=== PATIENT | female | born 1980 | race Caucasian/White ===

== ENCOUNTER 2016-10-11 12:32 | Emergency (ER) | payer SELFPAY ==
[2016-10-11 12:40] VITALS: BP 167/105; PULSE 94; TEMP 97.5
[2016-10-11 12:41] VITALS: BMI 47.0
--- NOTE | 2016-10-11 12:44 | EDPRACDOC ---
- General Information Stated Complaint: DENTAL PAIN Time Seen by Provider: 10/11/16 12:38 Information Source: Patient Home Medications: Home Medications Vilazodone Hydrochloride [Viibryd] 40 mg PO QHS 07/03/15 Lurasidone HCl [Latuda] 60 mg PO QHS 09/17/15 Hydroxyzine Pamoate [Vistaril] 100 mg PO HS 12/03/15 Buspirone HCl [Buspar] 40 mg PO QHS 03/29/16 Ibuprofen Tablet [Motrin] 800 mg PO QID #30 tab 05/20/16 Fluconazole [Diflucan] 150 mg PO ONCE #1 tab 06/22/16 Clindamycin [Cleocin] 300 mg PO TID #60 capsule 10/11/16 Oxycodone Immediate Release [Oxycodone Immediate Release (OxyIR)] 5 mg PO Q4H PRN #14 tab 10/11/16 Allergies/Adverse Reactions: Allergies Allergy/AdvReac Type Severity Reaction Status Date / Time ketorolac tromethamine Allergy Severe Nausea only Verified 06/22/16 14:31 [From Toradol] tramadol Allergy Severe Nausea only Verified 06/22/16 14:31 menthol [From Icy Hot] Allergy Intermediate See Verified 06/22/16 14:31 Comments methyl salicylate Allergy Intermediate See Verified 06/22/16 14:31 [From Icy Hot] Comments Sulfa (Sulfonamide Allergy Intermediate See Verified 06/22/16 14:31 Antibiotics) Comments Penicillins Allergy Mild RASH Verified 06/22/16 14:31 azithromycin Allergy Unknown Verified 06/22/16 14:31 dicyclomine HCl [From Bentyl] Allergy Nausea/Vomi Verified 06/22/16 14:31 ting codeine [Codeine] AdvReac Severe HX Verified 06/22/16 14:31 NARCOTIC DRUG USE erythromycin base AdvReac Intermediate ABD PAIN Verified 06/22/16 14:31 [Erythromycin Base] latex [Latex] AdvReac Intermediate RASH Verified 05/20/16 13:19 TAPE PLASTIC Allergy Hives* Uncoded 05/20/16 13:19 - History of Present Illness Onset: 1 DAYS HPI: RIGHT LOWER TOOTH BROKE YESTERDAY STARTED SWELLING AND CAUSING PAIN. NO FEVERS OR CHILLS AT THIS TIME. Pain Severity: Reports: Moderate Relevant History of: Reports: None Modifying Factors: improves with: None Associated Signs and Symptoms: Reports: None ED Past Medical History - History Reviewed Yes Nurses notes reviewed and agree except as marked Travel Outside of [place] in the Last 3 Months?: No - Patient Medical History Cardiac History: Reports: Hypertension, Congestive Heart Failure, Heart Attack ( 2? Unsure where she went for it) Respiratory History: Reports: Asthma GI/ History: Reports: Kidney Stones, Gastroesophageal Reflux Musculoskeletal History: Reports: Arthritis Psychological History: Reports: Anxiety, Bipolar Disorder, Substance Use Disorder (Opioid, Cocaine, Alcohol). Denies: Depression Systemic History: Denies: Anemia Additional Past Medical History: CHRONIC PAIN Surgical History: Reports: Cholecystectomy, Tonsillectomy/Adnoidectomy - Family Medical History Reports: Hypertension, Diabetes, Cancer, Stroke, Cardiac Disorders - Social Medical History Smoking Status: Heavy tobacco smoker (5 or more cigarettes/day or daily pipe/ cigar) Social History: Reports: Substance Use Disorder (Opioid, Cocaine, Alcohol) EDM Review of Systems - Review of Systems ROS Negative Except as Marked: Yes All systems reviewed and were negative except as marked Constitutional: No Symptoms Reported. negative: Fever, Chills, Weakness, Fatigue, Loss of Appetite Eyes: No Symptoms Reported. negative: Redness, Blurred Vision, Double Vision, Discharge, Pain, Light Sensitive, Photophobia Ears: No Symptoms Reported. negative: Pain, Hearing Loss, Drainage, Ear Pulling Throat: No Symptoms Reported. negative: Pain, Swelling Nose: No Symptoms Reported. negative: Congestion, Bleeding, Discharge, Injection, Swelling, Deformity, Ecchymosis, Tender, Abrasion, Laceration Mouth: Tooth Pain. negative: Pain, Drooling Respiratory: No Symptoms Reported. negative: Cough, Brassy Cough, Barky Cough, Shortness of Breath, Wheezing, Hemoptysis Cardiovascular: No Symptoms Reported. negative: Chest Pain, Palpitations, Syncope, Edema, Orthopnea, PND, Skin Mottling, Cyanosis Gastrointestinal: No Symptoms Reported. negative: Pain, Constipation, Nausea, Vomiting, Diarrhea, Melena, Formula Intolerance Genitourinary: No Symptoms Reported. negative: Dysuria, Hematuria, Frequency, Discharge, Bleeding, Testicular Pain, Neurological: No Symptoms Reported. negative: Headache, Dizziness, Seizure, Numbness, Weakness, Speech Difficulty, Gait Difficulty Musculoskeletal: No Symptoms Reported. negative: Neck, Chestwall, Ribs, Back, Shoulder, Arm, Elbow, Forearm, Wrist, Hand, Pelvis, Hip, Femur, Knee, Leg, Ankle , Foot Integumentary: No Symptoms Reported. negative: Itching, Rash, Bruising, Wound Allergic/Immunologic: No Symptoms Reported. negative: Hives, Itching Hematologic: No Symptoms Reported. negative: Lymphadenopathy, Easy Bruising, Easy Bleeding Endocrine: No Symptoms Reported. negative: Weight Gain, Weight Loss Psychiatric: No Symptoms Reported. negative: Anxiety, Depression, Hallucinations, Insomnia, Suicidal - Physical Exam Constitutional: Alert (Awake), No apparent distress Oriented to: Time, Person, Place Last recorded Vital Signs: Oxygen Pulse Oxygen Saturation O2 Device Oxygen Flow Rate Fraction of Inspired Oxygen ( FIO2) - HEENT Head: Normal ( normocephalic) Eye Exam: Normal (PERRL, EOMI, Sclera white) Oropharynx: Normal (Pharynx:Moist without exudate,Gums-no swelling) Tympanic Membrane: Normal ENT EAC: Normal TMJ: Normal Nose: No Symptoms Reported (septum midline) Neck: Normal (FROM, trachea at midline) - Respiratory/Cardiovascular Respiratory: Normal - CTA (BBS clear to auscultation without adventitious sounds ) Cardiovascular: Normal (RRR without murmur, gallop or rub) - GI Auscultation: Normal (NABS) Palpation: Normal (Soft,No rebound or guarding, non distended) Tenderness: Non tender Rojas's Sign: Negative - Musculoskeletal Back: Normal (Non-Tender) Extremities: Normal (Normal tone, Pulses 2+ No cyanosis or edema, FROM) - Integumentary Skin: Normal, Warm, Dry Lymphatics: Normal (no adenopathy) - Neurologic Memory Impaired: Normal Motor Function: Normal (Normal tone, Pulses 2+ No cyanosis or edema, FROM) Cranial Nerve: Normal (CN II-X11 intact sensation, strength 5/5) Cerebellar: Normal Mood Description: Normal Perception: Normal ED Tooth Problem Exam - HEENT Face: Swelling, Tender Teeth: Right: Molar-2 Lower (BROKEN CARIOUS) Gingiva: Tender, Swelling, Red Palate: Normal Mouth Range of Motion: Normal Sinuses: Normal Oropharynx: Normal Neck: Normal - Differential Diagnosis Periapical Abscess, Periodontal Abscess Decision Time to Discharge: 12:41 - Departure Disposition: Home Condition: Stable Final Diagnosis: Dental caries, Dental abscess (peridontal) Instructions: Dental Abscess (ED) Education/Counseling Given To: Patient Education/Counseling Given Regarding: Diagnosis, Treatment, Prognosis, Follow Up Referrals: None,No Provider [Primary Care Provider] - One Week Prescriptions: Clindamycin [Cleocin] 300 mg PO TID #60 capsule Oxycodone Immediate Release [Oxycodone Immediate Release (OxyIR)] 5 mg PO Q4H PRN #14 tab PRN Reason: Pain
[2016-10-11] MEDS ORDERED: FLUCONAZOLE 150 MG TAB PO ONE (12:53)
== END 2016-10-11 12:54 | disposition home or self-care (01) ==
LOC: EDMC 12:32
DX: K04.7 Periapical abscess without sinus (principal); K02.9 Dental caries, unspecified; F17.200 Nicotine dependence, unspecified, uncomplicated; F11.10 Opioid abuse, uncomplicated; F14.10 Cocaine abuse, uncomplicated; Z79.899 Other long term (current) drug therapy
CPT/HCPCS: 99282